=== PATIENT | female | born 1970 | race Caucasian/White ===

== ENCOUNTER 2024-08-26 08:56 | Outpatient (CLI) | payer BC, SELFPAY ==
[2024-09-19 12:09] VITALS: BMI 40.4
--- NOTE | 2024-09-19 12:09 | P.SLEEP_ITS ---
Sleep Study - Home Unattended Date of Study: 08/26/24 Ordering Provider: Nany Fowler NP Interpreting Provider: Yoselin Gonzalez, DO Home Sleep Study Type: Watch PAT Height: 1.57 m Weight: 100.244 kg Body Mass Index: 40.4 Neck Circumference (inches): 16.5 [place]: 2 Reason for Sleep Study Snoring, difficulty falling asleep Sleep History The patient is a 54-year-old female that had a sleep study ordered by her [facility] for evaluation of sleep apnea. The patient snores loudly and has difficulty falling asleep. She denies having interruptions and breathing while asleep. He denies choking or gasping at night. She does have trouble breathing on her back. She denies morning headaches. He denies having a ore storage drier sore mouth/ throat in the morning. She denies nocturnal heartburn. She denies nocturia. She does have difficulty falling asleep. She is able to fall back asleep if she wakes up throughout the night. She denies having difficulty staying asleep. She does use a hypnotic or sedative. She does feel anxious about sleep. She does feel tired or sleepy during the day. She does feel tired in the morning. She denies having the urge to fall asleep during the day. He denies feeling drowsy while driving. She denies sleep paralysis, cataplexy and hypnagogic / hypnopompic hallucinations. She does clench or grind her teeth. She denies kicking or jerking her legs excessively. She does have a restless feeling in her legs. The restless feeling in her legs does not give her the urge to move her legs. It does not get worse with rest but it does get better with activity. It is predominantly present in the evening and it does not cause a disturbance in her sleep. She goes to bed at 10:00 p.m. on work days and at 11:00 p.m. on her days off. It takes her 1 hour to fall asleep on workdays and 30 minutes on her days off. He gets 7 hours of sleep on her work days and 8 not have hours of sleep on her days off. Her sleep is a little more restorative on her days off. She denies taking any planned naps. She denies dream enactment behavior. She denies sleep walking. He consumes 1-2 cups of caffeinated beverage per day. She denies tobacco and alcohol use. She denies exercising on a regular basis. [facility] Past Medical History Medical History Hyperlipidemia Low back pain radiating to right leg Elevated rheumatoid factor Insomnia BMI 40.0-44.9, adult Hypersomnia Snoring Fatigue Prediabetes Connective tissue disease Sjogrens syndrome Inflammatory arthritis Screening mammogram, encounter for High cholesterol Depression Anxiety Surgical History Surgical History History of colonoscopy with polypectomy (01/23/22) History of dilation and curettage (08/05/19) hscope d&c History of knee surgery (~2017) History of cholecystectomy (~2008) History of gynecologic surgery (~2004) cyst removed from fallopian tube History of hand surgery (~1987) cyst removed from left hand History of appendectomy (~1984) Family History Family History Mother Diabetes mellitus Heart disease Father Diabetes mellitus Hypertension Sibling Diabetes mellitus sister Cervical cancer sister Malignant neoplasm of uterus sisters x2 Lupus erythematosus sister brother Acute myocardial infarction sister Grandparent Carcinoma of colon maternal grandfather Breast cancer maternal grandmother Malignant neoplasm of uterus paternal grandmother Social History Social History Smoking status: Never smoker Alcohol intake: current Alcohol use details: 1-2 year Substance use: never Substance use type: does not use Do You Feel Safe in your Home?: Yes Lack of Transportation: No Lack of Food: Never True Current Housing: I Have Housing Concerned About Future Housing: No Difficulty Paying Gas/Electric Bills: No Difficulty Paying for Meds: No Currently Unemployed: No Education: Associate Degree Difficulty w/ Childcare or Family Care: No Living arrangements: other Additional living arrangements comments: Occupation/Education: occupation Additional occupation/education comments: typing secretary Gender identity (if verbalized by the patient): Female Sexual Orientation (if Verbalized by the Patient): Straight or Heterosexual Medications Home Medications ?Medication ?Instructions ?Recorded ?Confirmed ?Type citalopram 20 mg tablet 20 mg PO DAILY 02/19/22 06/07/24 History clonazepam 1 mg tablet 1 mg PO DAILY 02/19/22 06/07/24 History folic acid 1 mg tablet 1 mg PO DAILY 06/02/23 06/07/24 History hydroxychloroquine 200 mg tablet 200 mg PO BID 06/04/24 06/07/24 History methotrexate sodium 2.5 mg tablet 15 mg PO WEEKLY 06/04/24 06/07/24 History mirtazapine 15 mg tablet (Remeron) 15 mg PO QHS #30 tabs 06/08/24 Rx tirzepatide (weight loss) 2.5 2.5 mg (0.5 mL) subcut WEEKLY #2 mL 07/26/24 Rx mg/0.5 mL subcutaneous pen injector (Zepbound) Sleep Procedure The sleep study was completed using TrueFacetPAT a technically adequate device with seven channels: peripheral arterial tone, actigraphy, body position, snore, respiratory movement, pulse oximetry, sleep staging, and heart rate. Prior to using the device, the patient received verbal and written instructions for its application and was provided with the help desk phone number for additional telephonic instruction with 24-hour availability of qualified personnel to answ er questions. The study was scored using CMS guidelines. Sleep Architecture The total recording time is 7 hrs, 50 min. The total sleep time is 6 hrs, 47 min. Sleep latency is 5 minutes. REM latency is 277 minutes. The patient had 15 episodes of waking. Sleep architecture shows 16.7% deep sleep, 67.4% light sleep, and (as % Total Sleep Time) showed NREM (Light 67.4%; Deep 16.7%), and a 15.8% stage REM. The patient spent 80.3% of total sleep time in the supine position. Sleep efficiency was 86.60. Respiratory Analysis The overall AHI (pAHI 4%:) is 18.1. The central AHI is 3.1. The AHI was 19.1 in NREM and 13.1 in REM sleep. The AHI was 14.6 in Supine and 32.8 in Non-supine sleep. Percent of Jonathon Ulloa respirations is 0.0. Oximetry Data The oxygen desaturation index (FERNANDO 4%:) is 17.7. The mean saturation is 93%, and the lowest saturation is 84%. Time spent with saturation < 88% is 2.5 minutes. Snoring Profile Snoring average intensity is 44 dB. The patient snored above 45 decibels for 109.8 minutes, 27.0% of sleep time. Cardiac Profile The average pulse rate is 69 beats per minutes. The lowest pulse rate is 57 bpm. The highest pulse rate reported is 90 bpm. Atrial fibrillation was not detected. Premature beats occur <0.1 per minute. Assessment and Plan Assessment and Plan (1) RAMBO (obstructive sleep apnea): Code(s): G47.33 - Obstructive sleep apnea (adult) (pediatric) Status: Acute Assessment and Plan: The patient had an overall AHI of 18.1 with desaturation down to 84%. This is consistent with moderate sleep apnea. I recommend that the patient be prescribed AutoPAP 5-15 cm H2O, CPAP mask/filters/tubing and heated humidity. This should be used with all episodes of sleep.? Compliance should be reviewed within 31-90 days of starting therapy for usage greater than 4 hours per night greater than 70% of the nights. The patient should be asked about symptoms such as?excessive daytime sleepiness, quality of sleep, decreased nocturia, increased?mental functioning such as memory, mood, and concentration. The patient's sleep history is somewhat suggestive of Restless Leg Syndrome. I recommend that the patient have a serum ferritin drawn for evaluation of iron deficiency anemia. If the patient has a serum ferritin less than 75 ng/mL, I recommend starting a daily iron supplement and a Vitamin C supplement for better absorption. If the serum ferritin is greater than 75 ng/mL, I recommend starting a dopamine agonist and titrating the dose until symptoms resolve. There are nonpharmacological methods to treat limb movements including daily exercise, stretching calf muscles before bed, avoiding excessive amounts of caffeine and alcohol, vitamin B supplementation, magnesium lotion massaged into legs before bed, and use of a weighted blanket. Data The data obtained during this sleep study is adequate for interpretation. Certification This sleep study has been reviewed by a board certified sleep medicine physi majo.
== END 2024-08-27 15:03 | disposition home or self-care (01) ==
LOC: ANHCSM 08:58
PROVIDERS: PCP Nurse Practitioner Family; Visit Provider Nurse Practitioner Family
DX: G47.33 Obstructive sleep apnea (adult) (pediatric) (principal); R06.83 Snoring; G47.10 Hypersomnia, unspecified
CPT/HCPCS: 95800